=== PATIENT | female | born 2005 | race Two or more races ===

== ENCOUNTER → 2024-09-07 | Outpatient (CLI) | payer MEDICAID, SELFPAY ==
--- NOTE | 2024-09-07 15:45 | XR_ITS ---
Examination: Thyroid sonography complete TECHNIQUE: Grayscale sonographic images thyroid lobes Date and time: September 07, 2024 1609 hours INDICATIONS: Diagnosis thyroid toxicosis. FINDINGS: Right thyroid 4.4 cm No solid nodules Left thyroid 3.7 cm No thyroid nodules IMPRESSION: Negative examination Given the patient's diagnosis, consider correlation with oral I-123 thyroid uptake and scan
== END | disposition home or self-care (01) ==
DX: E05.90 Thyrotoxicosis, unspecified without thyrotoxic crisis or storm (principal)
CPT/HCPCS: 76536